=== PATIENT | female | born 1975 | race American Indian/Alaskan Native ===

== ENCOUNTER 2017-03-09 16:21 | Emergency (ER) | payer OTHER ==
[2017-03-09 17:04] LABS: Basophils % (Auto) 0.7 % (0.0-1.8); Eosinophils % (Auto) 2.2 % (0.0-4.3); Hemoglobin 14.6 gm/dl (10.1-14.3); Mean Corpuscular HGB Conc 33 % (30-34); Mean Corpuscular Hemoglobin 30 pg (28-32); Mean Corpuscular Volume 92 fl (79-97); Platelet Count 320 K/mm3 (140-440); Red Cell Distribution Width 13.6 % (13.2-15.2); White Blood Count 7.7 K/mm3 (4.5-11.0)
[2017-03-09 17:20] LABS: Anion Gap 15 mmol/L; BUN/Creatinine Ratio 10; Blood Urea Nitrogen 8 mg/dL (7-17); Calcium 9.1 mg/dL (8.4-10.2); Carbon Dioxide 28 mmol/L (22-30); Chloride 100.7 mmol/L (98-107); Glucose 93 mg/dL (65-100); Sodium 140 mmol/L (137-145)
[2017-03-09] MEDS ORDERED: PROVENTIL IH ONE (21:15)
--- NOTE | 2017-03-10 03:03 | Emergency Department Report ---
ED Neck Pain/Injury HPI - General Chief Complaint: Chest Pain Stated Complaint: CHEST PAIN Time Seen by Provider: 03/10/17 02:28 Mode of arrival: Ambulatory Limitations: No Limitations - History of Present Illness Initial Comments: 42-year-old female with no significant past medical history presents to the hospital pain of intermittent left-sided neck spasm for the past 2 weeks. No aggravating or alleviating factors. Patient states symptoms occur at rest and she can feel something jumping on the left side of her neck. Patient thought it was a vein pulsating but upon showing me a video it appears to be spasms of her sternocleidomastoid muscles. No recent trauma, MVC, chiropractic adjustment reported. The last 3-4 days spasms are more frequent and preventing her from sleeping last night. Today patient also had tightness of the left side of her face had episode of shooting pain down left arm and episode of burning sensation to her foot. No reports of weakness, headache, nausea, vomiting, chest pain, or shortness of breath. Patient taken Advil without relief. Spasms have ceased over the last several hours while waiting to be evaluated in the ED. - Related Data Home Medications Medication Instructions Recorded Confirmed Last Taken Aspirin [Aspir-Low] 81 mg PO Q8HR PRN 03/10/17 03/10/17 Unknown Ibuprofen [Motrin] 2 tab PO Q6H PRN 03/10/17 03/10/17 Unknown Previous Rx's Medication Instructions Recorded Last Taken Type Diazepam Tab [Valium] 2 mg PO TID PRN #14 tablet 03/10/17 Unknown Rx Allergies Allergy/AdvReac Type Severity Reaction Status Date / Time No Known Allergies Allergy Verified 07/20/14 17:58 ED Review of Systems ROS: Stated complaint: CHEST PAIN Other details as noted in HPI Comment: All other systems reviewed and negative Other: Constitutional: No fevers chills Eyes: No eye pain visual changes ENT: No ear pain or throat pain Neck: As per HPI Respiratory: Denies cough wheezing shortness of breath Cardiovascular: Denies chest pain, palpitations, syncope GI: Denies abdominal pain, nausea, vomiting, diarrhea : Denies dysuria Musculoskeletal: Denies back pain Skin: Denies rash, lesions, erythema Neurologic: Denies headache Psychiatric: Denies suicidal ideation, hallucinations ED Past Medical Hx - Past Medical History Previous Medical History?: No - Surgical History Past Surgical History?: No - Social History Smoking Status: Never Smoker Substance Use Type: None - Medications Home Medications: Home Medications Medication Instructions Recorded Confirmed Last Taken Type Aspirin [Aspir-Low] 81 mg PO Q8HR PRN 03/10/17 03/10/17 Unknown History Diazepam Tab [Valium] 2 mg PO TID PRN #14 tablet 03/10/17 Unknown Rx Ibuprofen [Motrin] 2 tab PO Q6H PRN 03/10/17 03/10/17 Unknown History ED Physical Exam - General Limitations: No Limitations - Other Other exam information: General: No limitations, patient is alert in no acute distress Head exam: Atraumatic, normocephalic Eyes exam: Normal appearance, pupils equal reactive to light, extraocular movements intact ENT: Moist mucous membrane, normal oropharynx Neck exam: Normal inspection, full range of motion, no meningismus nontender, no spasms currently Respiratory exam: Clear to auscultation bilateral, no wheezes, rales, crackles Cardiovascular: Normal rate and rhythm, normal heart sounds Abdomen: Soft, nondistended, and nontender, with normal bowel sounds, no rebound, or guarding Extremity: Full range of motion normal inspection no deformity Back: Normal Inspection, full range of motion, no tenderness Neurologic: Alert, oriented x3, cranial nerves intact, no motor or sensory deficit, [id number] plus and intact Psychiatric: normal affect, normal mood Skin: Warm, dry, intact ED Course Vital Signs 03/09/17 03/10/17 03/10/17 16:39 01:41 02:37 Temperature 98 F 98.0 F Pulse Rate 78 95 H Respiratory 18 20 20 Rate Blood Pressure 118/78 Blood Pressure 121/74 [Left] O2 Sat by Pulse 97 100 100 Oximetry - Reevaluation(s) Reevaluation #1: 03/10/17 03:02 Patient asymptomatic ED Medical Decision Making - Lab Data Result diagrams: 03/09/17 16:45 03/09/17 16:45 Lab Results 03/09/17 03/09/17 03/09/17 Range/Units 16:45 16:45 16:45 WBC 7.7 (4.5-11.0) K/mm3 RBC 4.80 (3.65-5.03) M/mm3 Hgb 14.6 H (10.1-14.3) gm/dl Hct 44.0 H (30.3-42.9) % MCV 92 (79-97) fl MCH 30 (28-32) pg MCHC 33 (30-34) % RDW 13.6 (13.2-15.2) % Plt Count 320 (140-440) K/mm3 Lymph % (Auto) 35.9 H (13.4-35.0) % Barren % (Auto) 7.9 H (0.0-7.3) % Eos % (Auto) 2.2 (0.0-4.3) % Baso % (Auto) 0.7 (0.0-1.8) % Lymph # 2.8 (1.2-5.4) K/mm3 Barren # 0.6 (0.0-0.8) K/mm3 Eos # 0.2 (0.0-0.4) K/mm3 Baso # 0.1 (0.0-0.1) K/mm3 Seg Neutrophils % 53.3 (40.0-70.0) % Seg Neutrophils # 4.1 (1.8-7.7) K/mm3 Sodium 140 (137-145) mmol/L Potassium 4.0 (3.6-5.0) mmol/L Chloride 100.7 (98-107) mmol/L Carbon Dioxide 28 (22-30) mmol/L Anion Gap 15 mmol/L BUN 8 (7-17) mg/dL Creatinine 0.8 (0.7-1.2) mg/dL Estimated GFR > 60 ml/min BUN/Creatinine Ratio 10 % Glucose 93 (65-100) mg/dL Calcium 9.1 (8.4-10.2) mg/dL Troponin T < 0.010 (0.00-0.029) ng/mL HCG, Qual Negative (Negative) 03/09/17 03/09/17 Range/Units 19:15 22:30 WBC (4.5-11.0) K/mm3 RBC (3.65-5.03) M/mm3 Hgb (10.1-14.3) gm/dl Hct (30.3-42.9) % MCV (79-97) fl MCH (28-32) pg MCHC (30-34) % RDW (13.2-15.2) % Plt Count (140-440) K/mm3 Lymph % (Auto) (13.4-35.0) % Barren % (Auto) (0.0-7.3) % Eos % (Auto) (0.0-4.3) % Baso % (Auto) (0.0-1.8) % Lymph # (1.2-5.4) K/mm3 Barren # (0.0-0.8) K/mm3 Eos # (0.0-0.4) K/mm3 Baso # (0.0-0.1) K/mm3 Seg Neutrophils % (40.0-70.0) % Seg Neutrophils # (1.8-7.7) K/mm3 Sodium (137-145) mmol/L Potassium (3.6-5.0) mmol/L Chloride (98-107) mmol/L Carbon Dioxide (22-30) mmol/L Anion Gap mmol/L BUN (7-17) mg/dL Creatinine (0.7-1.2) mg/dL Estimated GFR ml/min BUN/Creatinine Ratio % Glucose (65-100) mg/dL Calcium (8.4-10.2) mg/dL Troponin T < 0.010 < 0.010 (0.00-0.029) ng/mL HCG, Qual (Negative) - EKG Data -: EKG Interpreted by Me (sinus rate 87, no ST elevation AK or t inversion) - Medical Decision Making She does not have any CVA or cardiac risk factors. No recent trauma or neck adjustment to put her at risk for carotid dissection. Patient is normotensive. EKG and cardiac enzymes negative. Patient's video appears to show spasms of the sternocleidomastoid muscle. Patient may be having associated radiculopathy symptoms. She will be treated symptomatically for neck spasm and encouraged to follow up primary care doctor. - Differential Diagnosis muscle spasm, electrolyte abnormality, dissection, CVA, radiculopathy Critical Care Time: No Critical care attestation.: If time is entered above; I have spent that time in minutes in the direct care of this critically ill patient, excluding procedure time. ED Disposition Clinical Impression: Neck muscle spasm, Radicular pain in left arm Disposition: DC- TO HOME OR SELFCARE Is pt being admited?: No Does the pt Need Aspirin: No Condition: Stable Instructions: Muscle Spasm (ED), Cervical Radiculopathy (ED) Additional Instructions: Take Valium as needed. Do not take medication if you have to drive or operate heavy machinery because it causes drowsiness. You may continue Advil or ibuprofen as needed for pain. Please follow-up with the primary care doctor provided. Return to the ER if symptoms worsen. Prescriptions: Diazepam Tab [Valium] 2 mg PO TID PRN #14 tablet PRN Reason: Muscle Spasm Referrals: REDD FARRIS MD [Staff Physician] - 3-5 Days Time of Disposition: 03:06
[2017-03-10 11:49] VITALS: BP 124/72
== END 2017-03-10 03:27 | disposition home or self-care (01) ==
LOC: ED 16:21
DX: M62.838 Other muscle spasm (principal); M79.602 Pain in left arm; Z79.82 Long term (current) use of aspirin
CPT/HCPCS: 36415; 80048; 84484; 84703; 85025; 93005; 93010; 99283